=== PATIENT | female | born 1950 | race Caucasian/White ===

== ENCOUNTER 2025-05-16 18:27 | Inpatient (IN) | payer OTHER, SELFPAY ==
[~2025-05-16 18:27] MED LIST: Iopamidol 370 76% 100 ML VIAL ONE
[2025-05-16 18:59] LABS: Glucose, Urine (Dipstick) Normal (Negative); Leukocyte Negative (Negative); Protein, Urine (Dipstick) 30 mg/dl (Neg-Trace); Specific Gravity, Urine 1.025 (1.005-1.030)
[2025-05-16 19:07] LABS: Cocaine Metabolite Screen Negative (Negative); THC/Cannabinoid Screen Negative (Negative); Tricyclic Screen Negative (Negative)
[2025-05-16 19:08] LABS: Bacteria/HPF 2+ HPF (None Seen); CAUTI Indications for Culture Pelvic or flank pain; RBC/HPF 0-3 HPF (0-3); WBC/HPF 0-3 HPF (0-3); Yeast-Budding 2+ HPF (None Seen)
[2025-05-16 19:13] LABS: Urine Culture Reflex No No
[2025-05-16 20:30] LABS: Acetaminophen Less than 10 mcg/mL (Less than 10); Lipase 203 U/L (8-78); Salicylate Less than 8.0 mg/dL (Less than 8.0)
[2025-05-16 20:32] LABS: ALT (SGPT) 19 U/L (Less than 34); AST (SGOT) 28 U/L (11-34); Albumin 3.5 g/dL (3.1-4.5); Alkaline Phosphatase 110 U/L (40-110); Anion Gap 13 mmol/L (10-20); BUN (Urea Nitrogen) 18 mg/dL (9.8-20.1); Bilirubin, Total 0.4 mg/dL (0.3-1.2); CK (CPK) 78 U/L (29-168); Calc. Creatinine Clearance 0 mL/min (70-130); Calcium 8.8 mg/dL (7.8-10.44); Carbon Dioxide 23 mmol/L (23-31); Chloride 100 mmol/L (98-107); Globulin 3.7 g/dL (2.4-3.5); Glucose 103 mg/dL (83-110); Potassium 4.2 mmol/L (3.5-5.1); Sodium 132 mmol/L (136-145)
[2025-05-16 20:34] LABS: Troponin I 0.068 ng/mL (< 0.028)
[2025-05-16] MEDS ORDERED: Aspirin Chewable 81 MG TAB ONE (20:43)
[2025-05-16] MEDS ORDERED: Cefepime 2 GM VIAL ONE (20:44)
[2025-05-16 21:11] LABS: #Basophils 0.04 10x3/uL (0.0-0.2); #Eosinophils 0.04 10x3/uL (0.0-0.5); #Monocytes 2.02 10x3/uL (0.0-1.1); #Neutrophils 18.88 10x3/uL (1.5-8.4); %Basophils 0.2 % (0.0-2.0); %Eosinophils 0.2 % (0.0-6.0); %Lymphocytes 3.3 % (18.0-47.0); %Monocytes 9.3 % (0.0-10.0); %Neutrophils 86.4 % (40.0-75.0); Hematocrit 36.3 % (34.9-44.5); Hemoglobin 11.6 g/dL (12.0-15.5); Mean Corpuscular Hemoglobin 31.4 pg (27.0-33.0); Mean Corpuscular Volume 98.1 fL (81.6-98.3); Platelet Count 428 10x3/uL (150-450); Red Blood Cell (RBC) Count 3.70 10x6/uL (3.90-5.03); White Blood Cell (WBC) Count 21.81 10x3/uL (3.5-10.5)
[2025-05-16] MEDS ORDERED: Magnesium 2 GM/50 ML BAG (IN WATER) ONE (21:41)
[2025-05-16] MEDS ORDERED: Ondansetron PF 4 MG/2 ML Vial ONE (22:35)
[2025-05-16] MEDS ORDERED: Guaifenesin DM 100-10/5 ML UDCUP PO PRN (23:25)
[2025-05-16] MEDS ORDERED: Calcium Carbonate 500 MG ChewTAB PO PRN (23:25)
[2025-05-16] MEDS ORDERED: Senokot S 8.6-50 MG TAB PO PRN (23:25)
[2025-05-17] MEDS ORDERED: Pantoprazole 40 MG VIAL ONE (01:23)
[2025-05-17] MEDS ORDERED: Azithromycin 500 MG VIAL ONE (01:23)
[2025-05-17] MEDS: Pantoprazole 40 MG VIAL IVP SCH (01:32)
[2025-05-17] MEDS: Azithromycin 500 MG in Sodium Chloride 0.9% 250 ML 250 ML IVPB SCH (01:32)
[2025-05-17 01:44] LABS: Legionella Urinary Ag Negative (Negative); Strep pneumo Urine Ag NEGATIVE (NEGATIVE)
[2025-05-17 02:25] LABS: Influenza A by NAA Not Detected (NotDetected); Influenza B by NAA Not Detected (NotDetected); RSV by NAA Not Detected (NotDetected); SARS-CoV-2 NAA Rapid Test Not Detected (NotDetected)
[2025-05-17 07:01] LABS: ALT (SGPT) 16 U/L (Less than 34); AST (SGOT) 32 U/L (11-34); Albumin 2.9 g/dL (3.1-4.5); Alkaline Phosphatase 120 U/L (40-110); Anion Gap 14 mmol/L (10-20); BUN (Urea Nitrogen) 18 mg/dL (9.8-20.1); Bilirubin, Total 0.2 mg/dL (0.3-1.2); Calc. Creatinine Clearance 61 mL/min (70-130); Calcium 7.9 mg/dL (7.8-10.44); Carbon Dioxide 20 mmol/L (23-31); Chloride 108 mmol/L (98-107); Globulin 3.2 g/dL (2.4-3.5); Glucose 130 mg/dL (83-110); Magnesium 2.3 mg/dL (1.6-2.6); Potassium 5.0 mmol/L (3.5-5.1); Sodium 137 mmol/L (136-145)
[2025-05-17 07:02] LABS: Lipase 116 U/L (8-78)
[2025-05-17 07:10] LABS: Troponin I 0.093 ng/mL (< 0.028)
[2025-05-17 07:20] LABS: Hematocrit 34.3 % (34.9-44.5); Hemoglobin 10.6 g/dL (12.0-15.5); Mean Corpuscular Hemoglobin 31.0 pg (27.0-33.0); Mean Corpuscular Volume 100.3 fL (81.6-98.3); Platelet Count 407 10x3/uL (150-450); Red Blood Cell (RBC) Count 3.42 10x6/uL (3.90-5.03); White Blood Cell (WBC) Count 24.41 10x3/uL (3.5-10.5)
[2025-05-17] MEDS: Mometasone 200 MCG/Formoterol 5 MCG 60 PUFF INHALER INH SCH (08:35)
[2025-05-17 08:37] LABS: MDiff Complete? YES
[2025-05-17] MEDS ORDERED: Enoxaparin 40 MG (0.4 mL) SYRINGE ONE (10:19)
[2025-05-17] MEDS: Enoxaparin 40 MG (0.4 mL) SYRINGE SC SCH (10:25)
[2025-05-17] MEDS ORDERED: Aspirin 81 mg Enteric Coated Tablet ONE (10:50)
[2025-05-17] MEDS ORDERED: Pantoprazole 40 MG DR.TAB ONE (10:50)
[2025-05-17] MEDS: Aspirin 81 mg Enteric Coated Tablet PO SCH (10:53)
[2025-05-17] MEDS: Pantoprazole 40 MG DR.TAB PO SCH (10:53)
[2025-05-17] MEDS: Gabapentin 100 MG CAP PO SCH (11:09)
[2025-05-17] MEDS ORDERED: GUAIFENESIN SF SOLN 200 MG/10 ML UDCUP PO PRN (18:13)
[2025-05-17] MEDS: Furosemide 40 MG (4 mL) VIAL SLOW IVP SCH (20:30)
[2025-05-17] MEDS: Vancomycin 1 GM in Sodium Chloride 0.9% 250 ML 250 ML IVPB SCH (20:34)
[2025-05-17] MEDS: Benzonatate 100 MG CAP PO SCH (20:36)
[2025-05-17] MEDS ORDERED: Guaifenesin DM 100-10/5 ML UDCUP PO PRN (21:45)
[2025-05-18] MEDS: Acetaminophen 325 MG TAB PO PRN (01:45)
[2025-05-18 03:45] LABS: #Basophils Less than 0.03 10x3/uL (0.0-0.2); #Eosinophils Less than 0.03 10x3/uL (0.0-0.5); #Monocytes 1.37 10x3/uL (0.0-1.1); #Neutrophils 14.83 10x3/uL (1.5-8.4); %Basophils 0.1 % (0.0-2.0); %Eosinophils 0.1 % (0.0-6.0); %Lymphocytes 3.1 % (18.0-47.0); %Monocytes 8.1 % (0.0-10.0); %Neutrophils 88.1 % (40.0-75.0); Hematocrit 28.0 % (34.9-44.5); Hemoglobin 9.1 g/dL (12.0-15.5); Mean Corpuscular Hemoglobin 31.6 pg (27.0-33.0); Mean Corpuscular Volume 97.2 fL (81.6-98.3); Platelet Count 336 10x3/uL (150-450); Red Blood Cell (RBC) Count 2.88 10x6/uL (3.90-5.03); White Blood Cell (WBC) Count 16.86 10x3/uL (3.5-10.5)
[2025-05-18 03:52] LABS: Anion Gap 10 mmol/L (10-20); BUN (Urea Nitrogen) 17 mg/dL (9.8-20.1); Calc. Creatinine Clearance 52 mL/min (70-130); Calcium 7.8 mg/dL (7.8-10.44); Carbon Dioxide 27 mmol/L (23-31); Chloride 103 mmol/L (98-107); Glucose 156 mg/dL (83-110); Potassium 3.8 mmol/L (3.5-5.1); Sodium 136 mmol/L (136-145); Vancomycin, Random 14.4 ug/mL (See Comment)
[2025-05-18] MEDS ORDERED: Vancomycin HCl 750 MG in Sodium Chloride 0.9% 250 ML 250 ML IVPB SCH (08:00)
[2025-05-18] MEDS: Vancomycin 1 GM in Sodium Chloride 0.9% 250 ML 250 ML IVPB SCH (09:09)
[2025-05-18] MEDS: Fluconazole 100 MG TAB PO SCH (15:54)
[2025-05-18] MEDS: Vancomycin HCl 750 MG in Sodium Chloride 0.9% 250 ML 250 ML IVPB SCH (20:02)
[2025-05-19 04:17] LABS: Vancomycin, Random 20.2 ug/mL (See Comment)
[2025-05-19 04:18] LABS: BUN (Urea Nitrogen) 12.0 mg/dL (9.8-20.1); Calc. Creatinine Clearance 68.0 mL/min (70-130)
[2025-05-19] MEDS ORDERED: CLINIMIX IV SCH (11:30)
[2025-05-19] MEDS ORDERED: LYTES IV SCH (11:30)
[2025-05-19] MEDS: HYDROcodone/Acetaminophen 5/325 mg Tablet PO SCH (12:56)
[2025-05-19] MEDS: Pantoprazole 40 MG VIAL IVP SCH (12:57)
[2025-05-19] MEDS ORDERED: D5W-AA 4.25% with LYTES 1,000 ML IV SCH (14:00)
[2025-05-19] MEDS: Ondansetron PF 4 MG/2 ML Vial IVP PRN (16:29)
[2025-05-19] MEDS: D5W-AA 4.25% with LYTES 1,000 ML IV SCH (16:31)
[2025-05-19] MEDS: Mometasone 100 MCG/PUFF (1 INHALER) INH SCH (19:42)
[2025-05-19] MEDS: lamoTRIgine 100 MG TAB PO SCH (21:00)
[2025-05-20] MEDS: Furosemide 40 MG (4 mL) VIAL ONE (00:14)
[2025-05-20] MEDS: Furosemide 40 MG (4 mL) VIAL SLOW IVP SCH (00:18)
[2025-05-20 03:21] LABS: #Basophils 0.06 10x3/uL (0.0-0.2); #Eosinophils 0.12 10x3/uL (0.0-0.5); #Monocytes 0.95 10x3/uL (0.0-1.1); #Neutrophils 12.10 10x3/uL (1.5-8.4); %Basophils 0.4 % (0.0-2.0); %Eosinophils 0.9 % (0.0-6.0); %Lymphocytes 5.6 % (18.0-47.0); %Monocytes 6.7 % (0.0-10.0); %Neutrophils 85.9 % (40.0-75.0); Hematocrit 29.6 % (34.9-44.5); Hemoglobin 9.5 g/dL (12.0-15.5); Mean Corpuscular Hemoglobin 30.8 pg (27.0-33.0); Mean Corpuscular Volume 96.1 fL (81.6-98.3); Platelet Count 374 10x3/uL (150-450); Red Blood Cell (RBC) Count 3.08 10x6/uL (3.90-5.03); White Blood Cell (WBC) Count 14.09 10x3/uL (3.5-10.5)
[2025-05-20 03:39] LABS: ALT (SGPT) 7 U/L (Less than 34); AST (SGOT) 18 U/L (11-34); Albumin 2.7 g/dL (3.1-4.5); Alkaline Phosphatase 100 U/L (40-110); Anion Gap 9 mmol/L (10-20); BUN (Urea Nitrogen) 15 mg/dL (9.8-20.1); Bilirubin, Total 0.3 mg/dL (0.3-1.2); Calc. Creatinine Clearance 65 mL/min (70-130); Calcium 8.9 mg/dL (7.8-10.44); Carbon Dioxide 34 mmol/L (23-31); Chloride 98 mmol/L (98-107); Globulin 3.4 g/dL (2.4-3.5); Glucose 162 mg/dL (83-110); Magnesium 1.7 mg/dL (1.6-2.6); Potassium 3.7 mmol/L (3.5-5.1); Sodium 137 mmol/L (136-145)
[2025-05-20 05:57] VITALS: BMI 19.3
[2025-05-20 07:39] LABS: Actual Bicarbonate (HCO3a) 38.6 mEq/L (22-28); Analyzer IN Cardio CS ICU; Base Excess (BEa) 12.4 mEq/L (-2.0 to +3.0); CO2 Tension 59.8 mmHg (35.0-45.0); Calcium, Ionized (arterial) 1.16 mmol/L (1.12-1.30); Critical Notified By: clumpkins rt; Hematocrit-ABG 29 % (36.0-47.0); Hemoglobin (Hb) 9.9 g/dL (12.0-16.0); O2 Tension (PaO2), arterial 56.2 mmHg (> 70.0); Potassium - ABG Lab 3.46 mmol/L (3.70-5.30); Puncture Site Right Radial artery; RapidComm Collect By clumpkins rt; pH, Arterial 7.428 (7.35-7.45)
[2025-05-20] MEDS: Magnesium 2 GM/50 ML(in water) 2 GM in Premix 1 BAG IVPB SCH (09:27)
[2025-05-20] MEDS: Isosorbide Mononitrate 30 MG ER.TAB.S PO SCH (09:28)
[2025-05-20] MEDS: Potassium Phosphate 30 MMOL in Sodium Chloride 0.9% 250 ML 250 ML IVPB SCH (09:29)
[2025-05-20] MEDS ORDERED: Benzonatate 100 MG CAP PO PRN (12:06)
[2025-05-20] MEDS: Albumin 25% 25 GM (100 mL) BOT IVPB SCH (15:07)
[2025-05-20 17:07] LABS: Vitamin D, 25 Hydroxy 33.3 ng/ml (> 30.0)
[2025-05-20 17:31] LABS: Vitamin B12 727.0 pg/mL (211-911)
[2025-05-20] MEDS: Cyanocobalamin (Vitamin B-12) 1,000 MCG TAB PO SCH (20:31)
[2025-05-20] MEDS: Cholecalciferol 1,000 UNITS (25 MCG) TAB PO SCH (20:31)
[2025-05-20] MEDS: Furosemide 20 MG (2 mL) VIAL SLOW IVP SCH (21:23)
[2025-05-21 03:31] LABS: #Basophils 0.03 10x3/uL (0.0-0.2); #Eosinophils 0.14 10x3/uL (0.0-0.5); #Monocytes 0.68 10x3/uL (0.0-1.1); #Neutrophils 7.01 10x3/uL (1.5-8.4); %Basophils 0.3 % (0.0-2.0); %Eosinophils 1.6 % (0.0-6.0); %Lymphocytes 10.4 % (18.0-47.0); %Monocytes 7.7 % (0.0-10.0); %Neutrophils 79.0 % (40.0-75.0); Hematocrit 23.5 % (34.9-44.5); Hemoglobin 7.6 g/dL (12.0-15.5); Mean Corpuscular Hemoglobin 30.4 pg (27.0-33.0); Mean Corpuscular Volume 94.0 fL (81.6-98.3); Platelet Count 296 10x3/uL (150-450); Red Blood Cell (RBC) Count 2.50 10x6/uL (3.90-5.03); White Blood Cell (WBC) Count 8.87 10x3/uL (3.5-10.5)
[2025-05-21 03:44] LABS: Vancomycin, Random 23.9 ug/mL (See Comment)
[2025-05-21 03:46] LABS: Anion Gap 11 mmol/L (10-20); BUN (Urea Nitrogen) 13 mg/dL (9.8-20.1); Calc. Creatinine Clearance 58 mL/min (70-130); Calcium 8.5 mg/dL (7.8-10.44); Carbon Dioxide 37 mmol/L (23-31); Chloride 97 mmol/L (98-107); Glucose 126 mg/dL (83-110); Magnesium 1.9 mg/dL (1.6-2.6); Potassium 3.4 mmol/L (3.5-5.1); Sodium 142 mmol/L (136-145)
[2025-05-21] MEDS ORDERED: D5W-AA 4.25% with LYTES 1,000 ML IV SCH (04:00)
[2025-05-21] MEDS: lamoTRIgine 100 MG TAB PO SCH (09:06)
[2025-05-21 19:28] LABS: Hematocrit 24.6 % (34.9-44.5); Hemoglobin 8.1 g/dL (12.0-15.5); Platelet Count 344 10x3/uL (150-450)
[2025-05-21] MEDS: NS 0.9% w/ 20 MEQ KCL 1,000 ML/1,000 ML BAG IV SCH (21:13)
[2025-05-21] MEDS: Vancomycin HCl 500 MG in Sodium Chloride 0.9% 250 ML 250 ML IVPB SCH (21:15)
[2025-05-22 03:43] LABS: #Basophils 0.04 10x3/uL (0.0-0.2); #Eosinophils 0.21 10x3/uL (0.0-0.5); #Monocytes 0.74 10x3/uL (0.0-1.1); #Neutrophils 7.76 10x3/uL (1.5-8.4); %Basophils 0.4 % (0.0-2.0); %Eosinophils 2.1 % (0.0-6.0); %Lymphocytes 9.4 % (18.0-47.0); %Monocytes 7.5 % (0.0-10.0); %Neutrophils 79.1 % (40.0-75.0); Hematocrit 24.2 % (34.9-44.5); Hemoglobin 7.9 g/dL (12.0-15.5); Mean Corpuscular Hemoglobin 30.9 pg (27.0-33.0); Mean Corpuscular Volume 94.5 fL (81.6-98.3); Platelet Count 278 10x3/uL (150-450); Red Blood Cell (RBC) Count 2.56 10x6/uL (3.90-5.03); White Blood Cell (WBC) Count 9.82 10x3/uL (3.5-10.5)
[2025-05-22 03:58] LABS: Vancomycin, Random 19.6 ug/mL (See Comment)
[2025-05-22 03:59] LABS: Anion Gap 12 mmol/L (10-20); BUN (Urea Nitrogen) 11 mg/dL (9.8-20.1); Calc. Creatinine Clearance 65 mL/min (70-130); Calcium 8.8 mg/dL (7.8-10.44); Carbon Dioxide 37 mmol/L (23-31); Chloride 98 mmol/L (98-107); Glucose 113 mg/dL (83-110); Iron 34 ug/dL (50-170); Iron Binding Capacity, Total 185 mcg/dL (265-497); Magnesium 1.7 mg/dL (1.6-2.6); Potassium 3.6 mmol/L (3.5-5.1); Sodium 143 mmol/L (136-145)
[2025-05-22] MEDS: Vancomycin HCl 750 MG in Sodium Chloride 0.9% 250 ML 250 ML IVPB SCH (09:51)
[2025-05-22 12:56] LABS: Hematocrit 24.5 % (34.9-44.5); Hemoglobin 7.8 g/dL (12.0-15.5)
[2025-05-22] MEDS ORDERED: PROPOFOL 20 ML ONE (13:29)
[2025-05-22] MEDS ORDERED: Lidocaine 1% PF 5 ML VIAL ONE (13:29)
[2025-05-22 16:50] LABS: Actual Bicarbonate (HCO3a) 36.8 mEq/L (22-28); Analyzer IN Cardio CS ICU; Base Excess (BEa) 12.3 mEq/L (-2.0 to +3.0); CO2 Tension 49.0 mmHg (35.0-45.0); Calcium, Ionized (arterial) 1.12 mmol/L (1.12-1.30); Critical Notified By: clumpkins rt; Hematocrit-ABG 24 % (36.0-47.0); Hemoglobin (Hb) 8.0 g/dL (12.0-16.0); O2 Tension (PaO2), arterial 50.9 mmHg (> 70.0); Potassium - ABG Lab 3.52 mmol/L (3.70-5.30); Puncture Site Left Radial artery; RapidComm Collect By clumpkins rt; pH, Arterial 7.494 (7.35-7.45)
[2025-05-22 18:27] LABS: Hematocrit 23.9 % (34.9-44.5); Hemoglobin 7.6 g/dL (12.0-15.5)
[2025-05-23 03:25] LABS: #Basophils 0.04 10x3/uL (0.0-0.2); #Eosinophils 0.22 10x3/uL (0.0-0.5); #Monocytes 0.83 10x3/uL (0.0-1.1); #Neutrophils 9.58 10x3/uL (1.5-8.4); %Basophils 0.3 % (0.0-2.0); %Eosinophils 1.9 % (0.0-6.0); %Lymphocytes 7.5 % (18.0-47.0); %Monocytes 7.1 % (0.0-10.0); %Neutrophils 82.3 % (40.0-75.0); Hematocrit 24.0 % (34.9-44.5); Hemoglobin 7.7 g/dL (12.0-15.5); Mean Corpuscular Hemoglobin 30.9 pg (27.0-33.0); Mean Corpuscular Volume 96.4 fL (81.6-98.3); Platelet Count 273 10x3/uL (150-450); Red Blood Cell (RBC) Count 2.49 10x6/uL (3.90-5.03); White Blood Cell (WBC) Count 11.65 10x3/uL (3.5-10.5)
[2025-05-23 03:39] LABS: Anion Gap 11 mmol/L (10-20); BUN (Urea Nitrogen) 8 mg/dL (9.8-20.1); Calc. Creatinine Clearance 67 mL/min (70-130); Calcium 8.6 mg/dL (7.8-10.44); Carbon Dioxide 35 mmol/L (23-31); Chloride 100 mmol/L (98-107); Glucose 116 mg/dL (83-110); Potassium 3.4 mmol/L (3.5-5.1); Sodium 143 mmol/L (136-145)
[2025-05-23 15:14] VITALS: BMI 19.3
[2025-05-23] MEDS: Thiamine 100 MG TAB PO SCH (20:12)
[2025-05-24 04:17] LABS: #Basophils 0.04 10x3/uL (0.0-0.2); #Eosinophils 0.13 10x3/uL (0.0-0.5); #Monocytes 0.88 10x3/uL (0.0-1.1); #Neutrophils 9.18 10x3/uL (1.5-8.4); %Basophils 0.4 % (0.0-2.0); %Eosinophils 1.1 % (0.0-6.0); %Lymphocytes 9.1 % (18.0-47.0); %Monocytes 7.7 % (0.0-10.0); %Neutrophils 80.6 % (40.0-75.0); Hematocrit 25.3 % (34.9-44.5); Hemoglobin 8.2 g/dL (12.0-15.5); Mean Corpuscular Hemoglobin 30.9 pg (27.0-33.0); Mean Corpuscular Volume 95.5 fL (81.6-98.3); Platelet Count 290 10x3/uL (150-450); Red Blood Cell (RBC) Count 2.65 10x6/uL (3.90-5.03); White Blood Cell (WBC) Count 11.40 10x3/uL (3.5-10.5)
[2025-05-24 04:31] LABS: Anion Gap 11 mmol/L (10-20); BUN (Urea Nitrogen) 9 mg/dL (9.8-20.1); Calc. Creatinine Clearance 64 mL/min (70-130); Calcium 8.7 mg/dL (7.8-10.44); Carbon Dioxide 35 mmol/L (23-31); Chloride 99 mmol/L (98-107); Glucose 102 mg/dL (83-110); Magnesium 1.6 mg/dL (1.6-2.6); Potassium 3.3 mmol/L (3.5-5.1); Sodium 142 mmol/L (136-145)
[2025-05-24] MEDS ORDERED: Magnesium Sulfate In Water 4 GM in Premix 1 BAG IVPB SCH (08:00)
[2025-05-24] MEDS: Potassium Phosphate 30 MMOL in Sodium Chloride 0.9% 250 ML 250 ML IVPB SCH (09:30)
[2025-05-24] MEDS: Magnesium 2 GM/50 ML(in water) 2 GM in Premix 1 BAG IVPB SCH (09:30)
[2025-05-24] MEDS ORDERED: LYTES IV SCH (11:30)
[2025-05-24] MEDS ORDERED: CLINIMIX IV SCH (11:30)
[2025-05-24] MEDS: D5W-AA 4.25% with LYTES 1,000 ML IV SCH (12:21)
[2025-05-25 03:04] LABS: #Basophils 0.04 10x3/uL (0.0-0.2); #Eosinophils 0.26 10x3/uL (0.0-0.5); #Monocytes 0.85 10x3/uL (0.0-1.1); #Neutrophils 8.79 10x3/uL (1.5-8.4); %Basophils 0.4 % (0.0-2.0); %Eosinophils 2.3 % (0.0-6.0); %Lymphocytes 10.5 % (18.0-47.0); %Monocytes 7.6 % (0.0-10.0); %Neutrophils 78.4 % (40.0-75.0); Hematocrit 23.3 % (34.9-44.5); Hemoglobin 7.6 g/dL (12.0-15.5); Mean Corpuscular Hemoglobin 31.7 pg (27.0-33.0); Mean Corpuscular Volume 97.1 fL (81.6-98.3); Platelet Count 261 10x3/uL (150-450); Red Blood Cell (RBC) Count 2.40 10x6/uL (3.90-5.03); White Blood Cell (WBC) Count 11.21 10x3/uL (3.5-10.5)
[2025-05-25 03:44] LABS: Anion Gap 13 mmol/L (10-20); BUN (Urea Nitrogen) 13 mg/dL (9.8-20.1); Calc. Creatinine Clearance 65 mL/min (70-130); Calcium 8.5 mg/dL (7.8-10.44); Carbon Dioxide 30 mmol/L (23-31); Chloride 102 mmol/L (98-107); Glucose 135 mg/dL (83-110); Magnesium 2.1 mg/dL (1.6-2.6); Potassium 4.3 mmol/L (3.5-5.1); Sodium 141 mmol/L (136-145)
[2025-05-25] MEDS ORDERED: Gabapentin 100 MG CAP PO PRN (07:31)
[2025-05-25] MEDS: D5W-AA 4.25% with LYTES 1,000 ML IV SCH (13:17)
[2025-05-25] MEDS ORDERED: Electrolyte Replacement Protocol 1 EACH FS SCH (22:00)
[2025-05-25] MEDS ORDERED: PHOS-NAK 1 PKT PACK PO PRN (22:15)
[2025-05-25] MEDS ORDERED: Potassium Chloride 20 MEQ in Premix 1 BAG IVPB PRN (22:15)
[2025-05-25] MEDS ORDERED: Magnesium Sulfate In Water 4 GM in Premix 1 BAG IVPB PRN (22:15)
[2025-05-26 03:32] LABS: #Basophils 0.04 10x3/uL (0.0-0.2); #Eosinophils 0.52 10x3/uL (0.0-0.5); #Monocytes 0.73 10x3/uL (0.0-1.1); #Neutrophils 8.12 10x3/uL (1.5-8.4); %Basophils 0.4 % (0.0-2.0); %Eosinophils 4.8 % (0.0-6.0); %Lymphocytes 12.3 % (18.0-47.0); %Monocytes 6.7 % (0.0-10.0); %Neutrophils 74.8 % (40.0-75.0); Hematocrit 24.7 % (34.9-44.5); Hemoglobin 7.7 g/dL (12.0-15.5); Mean Corpuscular Hemoglobin 30.4 pg (27.0-33.0); Mean Corpuscular Volume 97.6 fL (81.6-98.3); Platelet Count 270 10x3/uL (150-450); Red Blood Cell (RBC) Count 2.53 10x6/uL (3.90-5.03); White Blood Cell (WBC) Count 10.85 10x3/uL (3.5-10.5)
[2025-05-26 03:48] LABS: Magnesium 2.0 mg/dL (1.6-2.6)
[2025-05-27 03:25] LABS: #Basophils 0.06 10x3/uL (0.0-0.2); #Eosinophils 0.49 10x3/uL (0.0-0.5); #Monocytes 0.81 10x3/uL (0.0-1.1); #Neutrophils 9.84 10x3/uL (1.5-8.4); %Basophils 0.5 % (0.0-2.0); %Eosinophils 3.9 % (0.0-6.0); %Lymphocytes 10.4 % (18.0-47.0); %Monocytes 6.4 % (0.0-10.0); %Neutrophils 77.7 % (40.0-75.0); Hematocrit 26.8 % (34.9-44.5); Hemoglobin 8.4 g/dL (12.0-15.5); Mean Corpuscular Hemoglobin 30.9 pg (27.0-33.0); Mean Corpuscular Volume 98.5 fL (81.6-98.3); Platelet Count 337 10x3/uL (150-450); Red Blood Cell (RBC) Count 2.72 10x6/uL (3.90-5.03); White Blood Cell (WBC) Count 12.65 10x3/uL (3.5-10.5)
[2025-05-27 03:51] LABS: Anion Gap 12 mmol/L (10-20); BUN (Urea Nitrogen) 16 mg/dL (9.8-20.1); Calc. Creatinine Clearance 63 mL/min (70-130); Calcium 9.4 mg/dL (7.8-10.44); Carbon Dioxide 33 mmol/L (23-31); Chloride 100 mmol/L (98-107); Glucose 121 mg/dL (83-110); Magnesium 2.0 mg/dL (1.6-2.6); Potassium 4.7 mmol/L (3.5-5.1); Sodium 140 mmol/L (136-145)
[2025-05-28 03:48] LABS: #Basophils 0.07 10x3/uL (0.0-0.2); #Eosinophils 0.55 10x3/uL (0.0-0.5); #Monocytes 0.72 10x3/uL (0.0-1.1); #Neutrophils 10.76 10x3/uL (1.5-8.4); %Basophils 0.5 % (0.0-2.0); %Eosinophils 4.0 % (0.0-6.0); %Lymphocytes 11.2 % (18.0-47.0); %Monocytes 5.2 % (0.0-10.0); %Neutrophils 77.6 % (40.0-75.0); Hematocrit 30.2 % (34.9-44.5); Hemoglobin 9.6 g/dL (12.0-15.5); Mean Corpuscular Hemoglobin 30.7 pg (27.0-33.0); Mean Corpuscular Volume 96.5 fL (81.6-98.3); Platelet Count 441 10x3/uL (150-450); Red Blood Cell (RBC) Count 3.13 10x6/uL (3.90-5.03); White Blood Cell (WBC) Count 13.86 10x3/uL (3.5-10.5)
[2025-05-28 04:05] LABS: Anion Gap 15 mmol/L (10-20); BUN (Urea Nitrogen) 16 mg/dL (9.8-20.1); Calc. Creatinine Clearance 85 mL/min (70-130); Calcium 10.3 mg/dL (7.8-10.44); Carbon Dioxide 22 mmol/L (23-31); Chloride 107 mmol/L (98-107); Glucose 97 mg/dL (83-110); Potassium 4.3 mmol/L (3.5-5.1); Sodium 140 mmol/L (136-145)
[2025-05-28] MEDS: predniSONE 20 MG TAB PO SCH (09:08)
[2025-05-28 15:07] VITALS: BP 118/78; TEMP 98.4
== END 2025-05-28 14:55 | DRG 871 ==
LOC: CSHERS 18:27 → CSHERHOLD 23:25 → CSHTELE 05-17 13:00 → CSHICU 05-17 19:33
PROVIDERS: ADMIT Student in an Organized Health Care Education/Training Program; ATTEND Internal Medicine
PROC: 3E03329 Introduction of Other Anti-infective into Peripheral Vein, Percutaneous Approach (ICD-10-PCS; 2025-05-17)
PROC: 3E0336Z Introduction of Nutritional Substance into Peripheral Vein, Percutaneous Approach (ICD-10-PCS; 2025-05-19)
PROC: 30233J1 Transfusion of Nonautologous Serum Albumin into Peripheral Vein, Percutaneous Approach (ICD-10-PCS; 2025-05-20)
PROC: 4A133R1 Monitoring of Arterial Saturation, Peripheral, Percutaneous Approach (ICD-10-PCS; 2025-05-20)
PROC: 0DJ08ZZ Inspection of Upper Intestinal Tract, Via Natural or Artificial Opening Endoscopic (ICD-10-PCS; principal; 2025-05-22)
PROC: 05HY33Z Insertion of Infusion Device into Upper Vein, Percutaneous Approach (ICD-10-PCS; 2025-05-22)
PROC: 5A09357 Assistance with Respiratory Ventilation, Less than 24 Consecutive Hours, Continuous Positive Airway Pressure (ICD-10-PCS; 2025-05-22)
DX: A41.9 Sepsis, unspecified organism (principal); G93.41 Metabolic encephalopathy; J18.9 Pneumonia, unspecified organism; J69.0 Pneumonitis due to inhalation of food and vomit; J96.21 Acute and chronic respiratory failure with hypoxia; I50.33 Acute on chronic diastolic (congestive) heart failure; R57.1 Hypovolemic shock; K91.872 Postprocedural seroma of a digestive system organ or structure following a digestive system procedure; N17.9 Acute kidney failure, unspecified; I5A Non-ischemic myocardial injury (non-traumatic); E87.1 Hypo-osmolality and hyponatremia; E44.0 Moderate protein-calorie malnutrition; Z68.1 Body mass index [BMI] 19.9 or less, adult; I13.0 Hypertensive heart and chronic kidney disease with heart failure and stage 1 through stage 4 chronic kidney disease, or unspecified chronic kidney disease; N39.0 Urinary tract infection, site not specified; K92.1 Melena; J44.1 Chronic obstructive pulmonary disease with (acute) exacerbation; D62 Acute posthemorrhagic anemia; F33.0 Major depressive disorder, recurrent, mild; R65.20 Severe sepsis without septic shock; K21.9 Gastro-esophageal reflux disease without esophagitis; L40.50 Arthropathic psoriasis, unspecified; E86.0 Dehydration; Z86.718 Personal history of other venous thrombosis and embolism; N18.2 Chronic kidney disease, stage 2 (mild); F41.9 Anxiety disorder, unspecified; Z87.891 Personal history of nicotine dependence; D63.1 Anemia in chronic kidney disease; E87.6 Hypokalemia; E83.42 Hypomagnesemia; K44.9 Diaphragmatic hernia without obstruction or gangrene; Z99.81 Dependence on supplemental oxygen; G47.419 Narcolepsy without cataplexy; R79.1 Abnormal coagulation profile; J43.9 Emphysema, unspecified; Z79.899 Other long term (current) drug therapy; Y83.8 Other surgical procedures as the cause of abnormal reaction of the patient, or of later complication, without mention of misadventure at the time of the procedure
CPT/HCPCS: 36415; 36416; 36600; 70450; 70551; 71045; 71275; 74019; 74177; 80048; 80053; 80202; 80306; 80307; 81001; 82140; 82274; 82306; 82550; 82565; 82607; 82728; 82805; 83540; 83550; 83605; 83690; 83735; 83880; 84100; 84145; 84443; 84484; 84520; 85025; 85046; 85379; 86140; 86850; 86900; 86901; 87040; 87081; 87428; 87449; 87637; 87899; 93005; 93010; 93306; 94640; 94660; 94760; 94762; 97139; J0456; J0692; J1650; J1940; J2405; J2470; J2543; J2704; J3373; J3411; J3475; J3480; J7030; J7050; J7512; P9047; Q0164; Q9967

== ENCOUNTER 2025-05-17 09:40 | Emergency (ER) | payer OTHER | END 2025-05-17 13:51 | disposition admitted as inpatient to this hospital (09) | LOC: CSHERS 09:40 | DX: J18.9 Pneumonia, unspecified organism (principal); R41.82 Altered mental status, unspecified; N39.0 Urinary tract infection, site not specified; R79.89 Other specified abnormal findings of blood chemistry; K21.9 Gastro-esophageal reflux disease without esophagitis; I10 Essential (primary) hypertension; J44.9 Chronic obstructive pulmonary disease, unspecified; Z79.51 Long term (current) use of inhaled steroids; Z79.899 Other long term (current) drug therapy | CPT/HCPCS: 51701; 96361; 96365; 96375 ==